=== PATIENT | female | born 1995 | race Caucasian/White ===

== ENCOUNTER 2016-06-06 13:10 | Emergency (ER) | payer OTHER ==
--- NOTE | 2016-06-06 13:44 | ED Physician Documentation ---
Head Injury - HISTORIAN Historian: patient - HPI Stated Complaint: FALL Chief Complaint: Head Injury Onset: just prior to arrival Where: home Context: fall (got bucked a horse) Severity: mild Loss of Consciousness: brief (seconds) Further Comments: yes - ROS CONST: no problems. denies: fever - PAST HX Past History: other (bipolar, scoliosis) Immunizations: referred to PCP Allergies/Adverse Reactions: Allergies Allergy/AdvReac Type Severity Reaction Status Date / Time No Known Drug Allergies Allergy Verified 06/06/16 13:23 Home Medications: Ambulatory Orders Medication Instructions Recorded Bupropion HCl [Bupropion HCl] 100 mg D 06/06/16 - SOCIAL HX Smoking History: non-smoker Alcohol Use: none Drug Use: none - FAMILY HX Family History: none - VITAL SIGNS Vital Signs: Vital Signs Temp Pulse Resp BP Pulse Ox 97.6 F 76 20 101/68 99 06/06/16 13:19 06/06/16 13:19 06/06/16 13:19 06/06/16 13:19 06/06/16 13:19 - REVIEWED ASSESSMENTS Nursing Assessment Reviewed: Yes Vitals Reviewed: Yes ED Results Lab/Radiology - Lab Results Lab Results: Lab Results 06/06/16 14:10 Urine HCG, Qual Negative (NEGATIVE) - Radiology Radiology Impressions: Name: STEFFANY PACKER Date: Jun 06, 2016 2:17:02 PM CDT Modality Type: CR Gender: F Description: PELVIS : 89 Institution: [facility] Physician: TIM SPEARS - ER AP pelvis History: Pain after fall off horse. Findings: The osseous pelvis is intact without fracture, dislocation, arthropathy, or focal bone lesion. Electronically signed on Jun 06, 2016 2:47:10 PM CDT by: Partha Olivas Computed tomography of the head without contrast History: Neck pain after fall off horse Findings: Transverse brain sections are obtained without contrast from which multiplanar reformatted images are generated. Reversed cervical lordosis is present without fracture, disc space narrowing, subluxation, or paraspinal swelling. Impression: Reversed lordosis without fracture. Electronically signed on Jun 06, 2016 2:44:50 PM CDT by: Partha Olivas Computed tomography of the head without contrast History: Pain after fall off horse Findings: Transverse brain sections are obtained without contrast revealing normal-sized ventricles and sulci. Roca white differentiation intact. There is no intracranial hemorrhage. The skull is intact. Visualized sinuses and mastoid air cells are clear. Impression: Intact brain and skull. Electronically signed on Jun 06, 2016 2:46:09 PM CDT by: Partha Olivas - Orders Orders: ED Orders Category Date Time Status CT BRAIN W/O CONTRAST Stat Exams 06/06/[address] C-SPINE W/O CONTRAST Stat Exams 06/06/16 Taken PELVIS AP 1 OR 2 VIEWS [RAD] Stat Exams 06/06/16 Taken URINE HCG Routine Lab 06/06/16 14:10 Completed Head Injury Physical Exam - Physical Exam General Appearance: no acute distress, alert Head: trauma (mild posterior occiput tenderness) Neck: trachea midline, pain with neck movement (on left pericervicl area) Nexus Criteria: Nexus criteria neg Eyes: SURAJ, EOMI. No: periorbital edema, ecchymosis ENT: nml external inspection, pharynx nml. No: dental injury Neuro: alert, oriented x3, cooperative, interactive, mood/affect nml Cranial: nml as tested, no evidence of acute CVA Cerebellar: nml as tested Sensorimotor: motor nml, sensation nml. No: weakness Resp/CVS: chest non-tender, breath sounds nml, heart sounds nml, no resp. distress, lungs clear Abdomen: non-tender, no organomegaly, nml bowel sounds, no distention Back: other (tnederness over the left lower back/buttocks area, mild ecchymosis noted. ) Skin: warm/dry - [place] Coma Score Coma Scale Eye Opening: Spontaneous Coma Scale Verbal: Oriented Coma Scale Motor: Obeys Commands Discharge Clincal Impression: Mild concussion Qualifiers: Encounter type: initial encounter Loss of consciousness presence/duration: with LOC of 30 min or less Qualified Code(s): S06.0X1A - Concussion with loss of consciousness of 30 minutes or less, initial encounter Cervical strain, acute Qualifiers: Encounter type: initial encounter Qualified Code(s): S16.1XXA - Strain of muscle, fascia and tendon at neck level, initial encounter Contusion of buttock Qualifiers: Encounter type: initial encounter Qualified Code(s): S30.0XXA - Contusion of lower back and pelvis, initial encounter Referrals: Primary Doctor,No [Primary Care Provider] - 2 Days Additional Instructions: Take some Ibuprofen 200mg 2-3 tablets 2-3 times a day with food as needed for pain. Ice to area of pain. Follwo instruction sheets. If you have any problems to return to the ED or see your primary care provider. Home Medications: Ambulatory Orders Bupropion HCl [Bupropion HCl] 100 mg D 06/06/16 Condition: Stable Disposition: 01 HOME, SELF-CARE Decision to Admit: NO Date of Decison to Admit: 06/06/16 Decision Time: 15:16
--- NOTE | 2016-06-06 15:10 | Diagnostic Imaging Report ---
TIM SPEARS [facility] [address] [facility] [address] [address] Report Submission Date: Jun 06, 2016 2:46:09 PM CDT Patient Study Name: STEFFANY PACKER Date: Jun 06, 2016 2:03:51 PM CDT Modality Type: CT\SR Gender: F Description: CT BRAIN W/O CONTRAST : 89 Institution: [facility] Physician: TIM SPEARS Computed tomography of the head without contrast History: Pain after fall off horse Findings: Transverse brain sections are obtained without contrast revealing normal-sized ventricles and sulci. Roca white differentiation intact. There is no intracranial hemorrhage. The skull is intact. Visualized sinuses and mastoid air cells are clear. Impression: Intact brain and skull. Electronically signed on Jun 06, 2016 2:46:09 PM CDT by: Partha MCKEON
--- NOTE | 2016-06-06 15:11 | Diagnostic Imaging Report ---
TIM SPEARS [facility] [address] [facility] [address] [address] Report Submission Date: Jun 06, 2016 2:44:50 PM CDT Patient Study Name: STEFFANY PACKER Date: Jun 06, 2016 2:10:25 PM CDT Modality Type: CT\SR Gender: F Description: CT C-SPINE W/O CONTRAS : 89 Institution: [facility] Physician: TIM SPEARS Computed tomography of the head without contrast History: Neck pain after fall off horse Findings: Transverse brain sections are obtained without contrast from which multiplanar reformatted images are generated. Reversed cervical lordosis is present without fracture, disc space narrowing, subluxation, or paraspinal swelling. Impression: Reversed lordosis without fracture. Electronically signed on Jun 06, 2016 2:44:50 PM CDT by: Partha MCKEON
--- NOTE | 2016-06-06 15:11 | Diagnostic Imaging Report ---
TIM SPEARS [facility] [address] [facility] [address] Report Submission Date: Jun 06, 2016 2:47:10 PM CDT Patient Study Name: STEFFANY PACKER Date: Jun 06, 2016 2:17:02 PM CDT Modality Type: CR Gender: F Description: PELVIS : 89 Institution: [facility] Physician: TIM SPEARS AP pelvis History: Pain after fall off horse. Findings: The osseous pelvis is intact without fracture, dislocation, arthropathy, or focal bone lesion. Electronically signed on Jun 06, 2016 2:47:10 PM CDT by: Partha MCKEON
[2016-06-06 15:21] VITALS: BP 105/67
== END 2016-06-06 15:21 | disposition home or self-care (01) ==
LOC: ED 13:10
DX: S06.0X1A Concussion with loss of consciousness of 30 minutes or less, initial encounter (principal); S16.1XXA Strain of muscle, fascia and tendon at neck level, initial encounter; S30.0XXA Contusion of lower back and pelvis, initial encounter; V80.010A Animal-rider injured by fall from or being thrown from horse in noncollision accident, initial encounter; Y93.9 Activity, unspecified; Y99.9 Unspecified external cause status
CPT/HCPCS: 70450; 72125; 72170; 81025; 99283

== ENCOUNTER 2017-01-09 13:42 | Outpatient (CLI) | payer OTHER | END 2017-01-09 13:43 | LOC: LAB 13:42 | PROVIDERS: ATTEND Physician Assistant | DX: Z32.01 Encounter for pregnancy test, result positive (principal) | CPT/HCPCS: 36415; 84702 ==

== ENCOUNTER 2019-01-12 18:15 | Emergency (ER) | payer SELFPAY ==
[2019-01-12] MEDS ORDERED: 0.9 % SODIUM CHLORIDE 1,000 ML IV ONE (18:26)
[2019-01-12] MEDS ORDERED: ACETAMINOPHEN 500 MG TABLET PO ONE (18:26)
--- NOTE | 2019-01-12 18:46 | ED Physician Documentation ---
General Adult - HISTORIAN Historian: patient, paramedics - HPI Stated Complaint: n/v dizziness Chief Complaint: General Adult Onset: minutes Timing: better Further Comments: yes (23 year old female patient brought in by EMS with complaints of dizziness; fatigue, back pain. CASSIA 04/19/2018; 26 weeks; LMP 07/14/2018, patient reports back and hip pain for the past few weeks. OB is rey re. Is followed by Jayla DIOR.) - ROS CONST: other (fatigue) EYES/ENT: none CVS/RESP: none GI/: none MS/SKIN/LYMPH: back pain NEURO/PSYCH: denies: headache, fainting, dizziness, tingling, numbness, difficulty walking, difficulty with speech, anxiety, depression, other - PAST HX Past History: none - SOCIAL HX Smoking History: non-smoker - FAMILY HX Family History: No - VITAL SIGNS Vital Signs: Vital Signs Temp Pulse Resp BP Pulse Ox 97.9 F 83 14 103/60 94 01/12/19 18:20 01/12/19 18:20 01/12/19 18:20 01/12/19 18:20 01/12/19 18:20 - REVIEWED ASSESSMENTS Nursing Assessment Reviewed: Yes Vitals Reviewed: Yes <JADYN SANTAMARIA - Last Filed: 01/12/19 18:57> - VITAL SIGNS Vital Signs: Vital Signs Temp Pulse Resp BP Pulse Ox 97.9 F 83 14 103/60 94 01/12/19 18:20 01/12/19 18:20 01/12/19 18:20 01/12/19 18:20 01/12/19 18:20 <Barrera Bentley - Last Filed: 01/12/19 20:05> - PAST HX Allergies/Adverse Reactions: Allergies Allergy/AdvReac Type Severity Reaction Status Date / Time No Known Drug Allergies Allergy Verified 01/12/19 18:42 Progress - Progress Progress: FHT 136 - obtained with US machine 1900 Fluids infusing; patient resting quietly. Report to Dr Bentley <JADYN SANTAMARIA - Last Filed: 01/12/19 18:57> - Progress Progress: Pt given 2 L NS IVF in ER. Rx Keflex 500 mg po bid x 7 days, 1st dose in ER. <Barrera Bentley - Last Filed: 01/12/19 20:05> ED Results Lab/Radiology - Orders Orders: ED Orders Category Date Time Status UA W/MICRO IF INDICATED Stat Lab 01/12/19 18:26 Ordered 0.9 % Sodium Chloride [Normal Saline] 1,000 ml Med 01/12/19 18:26 Discontinued IV NOW Acetaminophen [Tylenol Extra Strength] Med 01/12/19 18:26 Discontinued 1,000 mg PO NOW ONE <JADYN SANTAMARIA - Last Filed: 01/12/19 18:57> - Orders Orders: ED Orders Category Date Time Status CBC/PLATELET/DIFF Routine Lab 01/12/19 Ordered CMP [CMP] Routine Lab 01/12/19 Ordered UA W/MICRO IF INDICATED Stat Lab 01/12/19 18:26 Ordered 0.9 % Sodium Chloride [Normal Saline] 1,000 ml Med 01/12/19 18:26 Discontinued IV NOW Acetaminophen [Tylenol Extra Strength] Med 01/12/19 18:26 Discontinued 1,000 mg PO NOW ONE Cephalexin [Keflex] Med 01/12/19 19:57 Once 500 mg PO NOW ONE <Barrera Bentley - Last Filed: 01/12/19 20:05> General Adult Physical Exam - PHYSICAL EXAM GENERAL APPEARANCE: mild distress EENT: eye inspection normal, SURAJ RESPIRATORY: no resp distress, chest non-tender, breath sounds normal CVS: reg rate & rhythm, heart sounds normal, equal pulses, no murmur, no gallop, PMI nml, no JVD, no friction rub, 24 ABDOMEN: soft, no organomegaly, normal bowel sounds, no abdominal bruit, no distension BACK: normal inspection, no CVA tenderness SKIN: warm/dry, normal color, pallor EXTREMITIES: non-tender, normal range of motion, no evidence of injury, no edema, J, [employer] TECHNICIAN NEURO: oriented X3, CN's nml as tested, motor nml, sensation nml, mood/affect nml <JADYN SANTAMARIA - Last Filed: 01/12/19 18:57> Discharge <JADYN SANTAMARIA - Last Filed: 01/12/19 18:57> Decision to Admit: NO Decision Time: 20:05 <Barrera Bentley - Last Filed: 01/12/19 20:05> Clincal Impression: UTI Prescriptions: Cephalexin [Keflex] 500 mg PO Q12H #14 capsule Referrals: Primary Doctor,No [Primary Care Provider] - Condition: Good Disposition: 01 HOME, SELF-CARE
[2019-01-12] MEDS ORDERED: CEPHALEXIN 250 MG CAPSULE PO ONE (19:57)
[2019-01-12 20:21] VITALS: BP 111/40
[2019-01-13 06:33] LABS: OCCULT BLOOD,URINE NEGATIVE (NEGATIVE); UROBILINOGEN URINE 0.2 Eu (0.2-1.0)
[2019-01-13 06:47] LABS: BASOPHILS % 0.2 % (0.0-1.5); NEUTROPHILS # 4.3 # k/uL (1.4-7.7)
[2019-01-13 06:48] LABS: eGFR (Non-African) > 60
== END 2019-01-12 20:15 | disposition home or self-care (01) ==
LOC: ED 18:15
DX: N39.0 Urinary tract infection, site not specified (principal)
CPT/HCPCS: 80053; 81002; 85025; 99283; 99284; J7030